=== PATIENT | female | born 1970 | race African-American/Black ===

== ENCOUNTER 2017-11-12 16:27 | Outpatient (CLI) | payer OTHER ==
[~2017-11-12] VITALS: Ht 175.3 cm; Wt 106.6 kg
--- NOTE | ~2017-11-12 | HP ---
PATIENT: FRANCISCO MARRERO MEDICAL RECORD: [id number] ACCOUNT: [id number] LOCATION:[address] : 68 ADMISSION DATE: 11/12/17 HISTORY AND PHYSICAL EXAMINATION DIAGNOSES: 1. Unstable angina. 2. Coronary artery disease. 3. Hypertension. 4. Diabetes. 5. Family history of coronary artery disease. HISTORY OF PRESENT ILLNESS: Mrs. Marrero has no previous history of ischemic heart disease. She began having chest pain yesterday, presented to the ER with continued pain. She continues to have episodes of pain this morning. Her troponin is mildly elevated. Her EKG has nonspecific ST-T abnormalities, but T-wave inversions in the lateral leads. REVIEW OF SYSTEMS: The patient reports easy bruising but reports no swollen glands. The patient reports no fever, no night sweats, no significant weight gain, no significant weight loss. No significant exercise tolerance. The patient reports no dry eyes, no irritation, no vision change. Patient reports no difficulty hearing and no ear pain. Patient reports no frequent nose bleeds or nose and sinus problems. Patient reports on arm pain on exertion. No shortness of breath while lying down. No history of heart murmur. Patient reports no cough, no wheezing or coughing up blood. Patient reports no abdominal pain, no vomiting. Normal appetite. No diarrhea and not vomiting blood. No nausea and no constipation. Patient reports no incontinence. No difficulty urinating. No hematuria. No increased frequency. Patient reports no muscle aches. No weakness, no arthralgias, no back pain. No swelling of the extremities. Patient reports no abnormal mole, no jaundice, no rashes. Reports no loss of consciousness. No weakness and no numbness. No seizures, dizziness, or headaches. The patient reports no depression, no sleep disturbance, feeling safe in a relationship and no alcohol abuse. Patient reports on fatigue. Reports no runny nose or sinus pressure. No itching, no hives, and no frequent sneezing. PHYSICAL EXAMINATION: GENERAL APPEARANCE: Well-nourished, well-developed, appears stated age. Level of distress, comfortable. PSYCHIATRIC: Mental status, alert, normal affect. Orientation, oriented to time, place and person. EYES: Lids and conjunctiva, noninjected. No discharge, no pallor. ENT: Lips, teeth, gums, normal dentition. Oropharynx, no cyanosis, no pallor. NECK: Carotid arteries, bilateral normal upstroke, no bruits, no thrills. JUGULAR VEINS: No jugular venous pressure or distention. CERVICAL LYMPH NODES: Nontender, nonenlarged. THYROID: Not enlarged. Nontender. No nodules. LUNGS: Respiratory effort, unlabored. CHEST: Normal curvature. No thoracic deformity. No chest wall tenderness. Percussion, resonant. Auscultation, clear. No wheezes, no rales, no rhonchi. CARDIOVASCULAR: Precordial exam, nondisplaced. No heaves or pericardial thrills. Rate and rhythm, regular. Heart sounds, normal S1, normal S2. No S3, no gallop, no rub. Systolic murmur, not heard. Diastolic murmur, not heard. EXTREMITIES: No cyanosis, no edema. Peripheral pulses, full and equal in all HISTORY AND PHYSICAL [id number] MARREROFRANCISCO extremities, except as noted. No bruits appreciated. ABDOMEN: Soft, nondistended. Normal aorta. No bruit. Nontender. No masses. Liver, nontender, no hepatomegaly. Spleen, nontender, no splenomegaly. MUSCULOSKELETAL: No joint tenderness. No joint swelling. No erythema. NEUROLOGICAL: Normal gait, normal strength, normal tone. SKIN: Warm and dry. OVERALL IMPRESSION: Chest pain compatible with angina in a rapidly unstable fashion with mildly elevated troponin. At this time, we will proceed with coronary angiography. Further care depends upon the findings of the angiography. TRANSINT:[id number] Voice Confirmation ID: [id number] DOCUMENT ID: [id number] GONSALO NAM MD at 0956 CC: [id number] DICTATION DATE: 11/13/17 08 TAG PRESS OPERATOR: 11/13/17 0817 ADM IN [place] [id number] [place] [address]
--- NOTE | ~2017-11-12 | DS ---
PATIENT:FRANCISCO MARRERO :68 MEDICAL RECORD: [id number] DISCHARGE SUMMARY ADMISSION DATE: 11/12/17 DISCHARGE DATE: 11/13/17 DISCHARGE DIAGNOSES: 1. Unstable angina. 2. Coronary artery disease. 3. Percutaneous transluminal coronary angioplasty stent left anterior descending this admission. 4. Diabetes. 5. Hypertension. HOSPITAL COURSE: Mrs. Marrero presents with anginal symptomatology, found to have single vessel disease to the LAD, underwent successful PTCA stent of the LAD, discharged home with the addition of aspirin and Plavix to her medical regimen. Will follow up with [facility] in 1 month. TRANSINT:[id number] Voice Confirmation ID: [id number] DOCUMENT ID: [id number] GONSALO NAM MD at 1202 CC: [id number] DICTATION DATE: 11/13/17 0958 WELL DIGGER: 11/13/17 1114 DEP CLI 11/13/[address] [address]
--- NOTE | ~2017-11-12 | OP ---
PATIENT NAME: FRANCISCO ECHOLS MEDICAL RECORD: [id number] :68 LOCATION:D.CAT ADMISSION DATE: SURGEON: GONSALO NAM MD DATE OF OPERATION: 11/13/2017 PROCEDURES: 1. PTCA stent LAD. 2. Left heart catheterization. 3. Selective coronary angiography. 4. Left ventriculogram. INDICATION: Unstable angina. PROCEDURE IN DETAIL: After informed consent was obtained and after detailed explanation of risks, benefits as well as alternative therapies, the patient elected to proceed with angiogram and angioplasty. The right radial area was prepped and draped in normal sterile fashion. Radial artery was cannulated via modified Seldinger technique with placement of 6-Malaysian sheath. All catheters exchanged through this sheath. FINDINGS: Left ventriculogram was performed in the standard 30-degree ZAZUETA view and reveals good cardiac wall motion throughout all segments. Overall ejection fraction is estimated at 55% to 60%. SELECTIVE CORONARY ANGIOGRAPHY: 1. Left main showed no significant angiographic disease. 2. Left anterior descending has 70+ percent stenosis proximally, otherwise only mild irregularities. 3. Left circumflex has moderate irregularities, but no flow-limiting stenosis. 4. Right coronary has moderate irregularities, but no flow-limiting stenosis. PTCA STENT OF THE LAD: The stent used is 4.0 x 22 mm Integrity. Result was 0% residual stenosis. OVERALL IMPRESSION: Successful percutaneous transluminal coronary angioplasty stent of the left anterior descending going from 70+ percent initial stenosis to 0% residual. TRANSINT:[id number] Voice Confirmation ID: [id number] DOCUMENT ID: [id number] GONSALO NAM MD at 1202 CC: [id number] DICTATION DATE: 11/13/17 0958 CHALK MACHINE OPERATOR: 11/13/17 1009 DEP CLI 11/13/17 [place] [address]
--- NOTE | ~2017-11-12 | HEMODYNAMI ---
PATIENT:FRANCISCO ECHOLS MEDICAL RECORD: [id number] : 68 [place] [place] [facility] [id number] ADMISSION DATE: 11/12/17 Generatedon:11/13/20179:58 Patient name: FRANCISCO ECHOLS Patient #: [id number] SSN: DO B: 1970 Date of study: 11/13/2017 Page: Of Hemodynamic Procedure Report Patient Data Patient Demographics Procedure consent was obtained First Name: FRANCISCO Gender: Female Last Name: ONESIMO : 1970 Patient #: [id number] Age: 47 year(s) Race: Black Additional ID: [id number] Contact details Address: [address] [place] [address] State: [place] City: [facility] Zip code: [address] Admission Admission Data Admission Date: 11/12/2017 Admission Time: 22:42 Room #: D.2137 Procedure Procedure Types Cath Procedure Diagnostic Procedure LHC LH w/Coronaries Sedation Charges Moderate Sedation up to 15 minutes PCI Procedure Coronary Stent Coronary Stent Initial Procedure Description Procedure Date Procedure Date: 11/13/2017 Procedure Start Time: 9:41 Procedure End Time: 9:57 Procedure Staff Name Function Amol Christina MD Performing Physician Edward Doe RT Monitor Aquiles Lazo RT Scrub Hai Mejia RN Nurse Procedure Data Cath Procedure Fluoroscopy Diagnostic fluoroscopy Total fluoroscopy Time: 3.1 time: 3.1 min min Diagnostic fluoroscopy Total fluoroscopy dose: 281 dose: 281 mGy mGy Contrast Material Contrast Material Type Amount (ml) Isovue 300 90 Entry Location Entry Primary Successful Side Size Upsize Upsize Entry Closure Peralta ccessful Closure Location (Fr) 1 (Fr) 2 (Fr) Remarks Device Remarks Radial Right 6 Fr Mechanical artery Short Compression Estimated blood loss: 10 ml Diagnostic catheters Device Type Used For End Catheter Placement DIAGNOSTIC [place] 110cm 5 Procedure Fr catheter ([id number]) Procedure Complications No complications Procedure Medications Medication Administration Route Dosage Oxygen NC 2 l/min Heparin Flush Bag added to field 2 bags (1000units/500ml NS) 0.9% NaCl I.V. 100 ml/hr Radial Cocktail added to field 1 syringe (Verapomil 2mg/Nitro 400mcg/Heparin 1500units) Fentanyl I.V. 50 mcg Versed I.V. 1 mg Fentanyl I.V. 50 mcg Versed I.V. 1 mg Radial Cocktail I.A. 1 syringe (Verapomil 2mg/Nitro 400mcg/Heparin 1500units) Heparin Bolus I.V. 4000 units Plavix P.O. 75 mg Hemodynamics Rest Heart Rate: 79 (bpm) Pressure Samples Time Site Value (mmHg) Purpose Heart Use Rate(bpm) 9:45 LV 111/7,12 Snapshot 92 9:45 AO 120/88(102) Pullback 95 9:45 LV 116/9,16 Pullback 95 9:45 AO 109/79(92) Snapshot 95 Gradients Valve Time Site 1 Site 2 Mean SEP/DFP Peak To Heart Use (mmHg) (sec/min) Peak Rate (mmHg) (bpm) Aortic 9:45 LV AO 0 7 0 95 116/9,16 120/88(102) Calculations Valve P-P Mean Valve Index Valve Source Name Gradient Area Flow (cm2) Aortic 0 0 0 0 Snapshots Pre Cath Intra NCS Post Cath Vital Signs Time Heart Resp SPO2 etCO2 NIBP (mmHg) Rhythm Pain Sedation Rate (ipm) (%) (mmHg) Status Level (bpm) 9:27:37 81 17 97 0 141/97(122) NSR 0 (11) 10(A) , No pain 9:32:02 84 14 96 32.5 146/94(111) NSR 0 (11) 10(A) , No pain 9:36:28 79 16 97 27.9 127/107(115) NSR 0 (11) 10(A) , No pain 9:40:46 93 16 92 38.6 133/93(121) NSR 0 (11) 9(A) , No pain 9:45:06 78 16 93 31 125/98(108) NSR 0 (11) 9(A) , No pain 9:49:28 93 16 92 40.1 136/80(108) NSR 0 (11) 9(A) , No pain 9:53:52 90 17 91 35.5 137/86(111) NSR 0 (11) 9(A) , No pain Medications Time Medication Route Dose Verified Delivered Reason Notes Effectiveness by by 9:31:52 Oxygen NC 2 l/min Amol Valles Per physician Sanford Mejia RN 9:32:07 Heparin Flush added 2 bags Amol Valles used for Bag to Sanford Mejia RN procedure (1000units/500ml field NS) 9:32:32 0.9% NaCl I.V. 100 Amol Valles Per physician ml/hr Sanford Mejia RN 9:32:43 Radial Cocktail added 1 Amol Valles used for (Verapomil to syringe Sanford Mejia RN procedure 2mg/Nitro field 400mcg/Heparin 1500units) 9:37:52 Fentanyl I.V. 50 mcg Amol Valles for sedation Sanford Mejia RN 9:37:59 Versed I.V. 1 mg Amol Valles for sedation Sanford Mejia RN 9:40:18 Fentanyl I.V. 50 mcg Amol Valles for sedation Sanford Mejia RN 9:43:46 Versed I.V. 1 mg Amol Valles for sedation Sanford Mejia RN 9:43:57 Radial Cocktail I.A. 1 Amol Carmichael for (Verapomil syringe Sanford Christina MD vasodilation 2mg/Nitro 400mcg/Heparin 1500units) 9:50:02 Heparin Bolus I.V. 4000 Amol Valles for units Sanford Mejia RN anticoagulation 9:54:45 Plavix P.O. 75 mg Amol Valles for Sanford Mejia RN antiplatelet therapy Procedure Log Time Note 9:01:16 Diagnostic Cath status Elective 9:01:17 Edward Doe RT(R) sent for patient. Start room use. 9:01:18 Time tracking: Regular hours 9:01:21 Plan of Care:Hemodynamics will remain stable., Cardiac rhythm will remain stable., Comfort level will be maintained., Respiratory function will remain adequate., Patient/ family verbilizes understanding of procedure., Procedure tolerated without complication., Recovers from procedure without complications.. 9:20:12 Patient received from PCU to CCL 3 Alert and oriented. Tansferred to table in Supine position. 9:20:15 Warm blankets applied, and phil hugger turned on for patient comfort. 9:20:16 Correct patient and procedure confirmed by team. 9:20:18 Signed procedure consent form obtained from patient. 9:20:19 ECG and BP/O2 sat monitors applied to patient. 9:26:20 Vital chart was started 9:26:49 Baseline sample Acquired. 9:26:52 Rhythm: sinus rhythm 9:26:54 Full Disclosure recording started 9:27:38 H&P Date Dictated: 11/12/2017 Within 30 days and on chart.. 9:27:38 Pre-procedure instructions explained to patient. 9:27:39 Pre-op teaching completed and patient verbalized understanding. 9:27:40 Family unavailable. 9:27:42 Patient NPO since Midnight. 9:27:45 Is the patient allergic to Iodine/contrast media? No. 9:27:46 Is patient on blood thinner?Yes 9:27:48 ACC The patient was administered the following blood thiners within the last 24 hours: ACCPlavix 9:27:49 Patient diabetic? Yes. 9:27:50 If diabetic: On Metformin? Yes 9:27:53 If on Metformin: Last Dose? 11/11/2017 9:27:58 HCG/Urine : completed and on chart, negative 9:28:02 Previous problem with sedation/anesthesia? No ? 9:28:03 Snore? Yes 9:28:04 Sleep apnea? No 9:28:05 Deviated septum? No 9:28:06 Opens mouth fully? Yes 9:28:06 Sticks out tongue? Yes 9:28:10 Dentures? No ? 9:28:11 Airway obstruction? No ? 9:28:14 Pre procedure: right dorsailis pedis pulse 1+ Palpable, but thready & weak; easily obliterated 9:28:15 Modified Isaías's test Ulnar < 7 seconds 9:28:17 Patient pain scale 0/10 ?. 9:28:20 IV patent on arrival in left forearm with 0.9% NaCl at KVO. 9:28:22 Lab results completed and on chart. 9:28:25 Right Radial & Right Groin area was prepped with chlora-prep and draped in sterile fashion 9:28:26 Alarms reviewed by R. N. 9:28:26 Sharps counted by scrub and verified by R.N. 9:28:33 Use device set Radial Dx or PCI 9:28:34 Tegaderm 4 x 4 (1626W) opened to sterile field. 9:28:35 ACIST Manifold (38232) opened to sterile field. 9:28:36 ACIST Hand Control (58856) opened to sterile field. 9:28:37 ACIST Syringe (21156) opened to sterile field. 9:28:37 Medline Cath Pack ([id number]) opened to sterile field. 9:28:38 Bag Decanter (2002S) opened to sterile field. 9:28:38 SHEATH 6FR Slender ([id number]) opened to sterile field. 9:28:39 DIAGNOSTIC WIRE .035 260cm J wire (407916) opened to sterile field. 9:28:39 MBrace Wrist Support ([id number]) opened to sterile field. 9:31:52 Oxygen 2 l/min NC was administered by Hai Mejia RN; Per physician; 9:32:07 Heparin Flush Bag (1000units/500ml NS) 2 bags added to field was administered by Hai Mejia RN; used for procedure; 9:32:32 0.9% NaCl 100 ml/hr I.V. was administered by Hai Mejia RN; Per physician; 9:32:43 Radial Cocktail (Verapomil 2mg/Nitro 400mcg/Heparin 1500units) 1 syringe added to field was administered by aHi Mejia RN; used for procedure; 9:36:28 --------ALL STOP TIME OUT------ 9:36:29 Final Timeout: patient, procedure, and site verified with staff and physician. All members of the team are in agreement. 9:36:31 Right Radial & Right Groin site verified by team. 9:36:33 Physical assessment completed. ASA score P 2 - A patient with mild systemic disease as per Amol Christina MD. 9:36:37 Sedation plan: IV Moderate Sedation Medication:Versed, Fentanyl 9:37:52 Fentanyl 50 mcg I.V. was administered by Hai Mejia RN; for sedation; 9:37:59 Versed 1 mg I.V. was administered by Hai Mejia RN; for sedation; 9:39:29 Zero performed for pressure channel P1 9:40:18 Fentanyl 50 mcg I.V. was administered by Hai Mejia RN; for sedation; 9:41:24 Procedure started. 9:41:30 Local anesthetic to right radial artery with Lidocaine 2% by Amol Christina MD.INITIAL ACCESS ONLY 9:43:26 A 6 Fr Short sheath was inserted into the Right Radial artery 9:43:46 Versed 1 mg I.V. was administered by Hai Mejia RN; for sedation; 9:43:57 Radial Cocktail (Verapomil 2mg/Nitro 400mcg/Heparin 1500units) 1 syringe I.A. was administered by Amol Christina MD; for vasodilation; 9:44:31 A DIAGNOSTIC [place] 110cm 5 Fr catheter ([id number]) was advanced over the wire and used for Procedure. 9:45:32 LV angiography performed. 9:45:34 LV gram done using ZAZUETA 9:45:43 EF : 60 % 9:45:45 LV hemodynamics recorded. 9:45:52 Injector settings: Ml/sec: 7, Volume: 15, 9:45:57 RCA angiography performed. 9:46:54 LCA angiography performed. 9:47:43 Use device set [facility] PCI 9:47:48 INFLATOR Merit BasixCompak (OZ6964) opened to sterile field. 9:47:53 GRAPHIX 182cm guide wire ([id number]) opened to sterile field. 9:48:34 GUIDE 6FR XBLAD 3.5 catheter ([id number]) opened to sterile field. 9:49:03 6 Fr XBLAD 3.5 guide catheter was inserted over the wire 9:49:21 Study PCI Site: [place] pLAD has 75% stenosis. 9:49:25 ACC Pre-intervention GALILEO Flow is 3. 9:49:55 Choice PT XS wire advanced. 9:50:02 Heparin Bolus 4000 units I.V. was administered by Hai Mejia RN; for anticoagulation; 9:50:20 Wire advanced across lesion. 9:51:53 Inflation number: 1 A INTEGRITY RX 4.0 x 22 stent ([id number]) was prepped and advanced across the Prox LAD, then inflated to 15 MACEY for 0:10 (min:sec). 9:52:24 TR BAND Large ([id number]) opened to sterile field. 9:52:46 ACC Post-intervention GALILEO Flow is 3. 9:52:47 Stent catheter was removed intact over wire. 9:52:48 Wire removed. 9:52:48 Guide catheter removed. 9:53:50 Procedure ended.(Physican Out) 9:54:45 Plavix 75 mg P.O. was administered by Hai Mejia RN; for antiplatelet therapy; 9:54:57 Sheath removed intact; hemostasis achieved with Mechanical Compression to the Right Radial artery. 9:55:05 Fluoroscopy time 03.10 minutes. 9:55:10 Flurop Dose total: 281 9:55:10 Fluoroscopy dose: 281 mGy 9:55:14 Contrast amount:Isovue 300 90ml. 9:55:16 Sharps counted by scrub and verified by R.N. 9:55:19 TR band inflated with 12cc of air. 9:55:20 Insertion/operative site no bleeding no hematoma. 9:55:22 Post Procedure Pulses reassessed and unchanged 9:55:24 Post-procedure physical assessment completed. ASA score P 2 - A patient with mild systemic disease as per Amol Christina MD. 9:55:26 Post procedure rhythm: unchanged. 9:55:29 Estimated blood loss: 10 ml 9:55:30 Post procedure instruction explained to patient.Patient verbalizes understanding. 9:55:31 Patient needs reinforcement of post procedure teaching. 9:55:48 Procedure type changed to Cath procedure, Diagnostic procedure, LHC, LHC w/Coronaries, Sedation Charges, Moderate Sedation up to 15 minutes, PCI procedure, Coronary Stent, Coronary Stent Initial 9:55:50 Procedure and supply charges have been captured, reviewed, submitted and are correct. 9:55:52 Procedure Complication : No complications 9:57:20 Vital chart was stopped 9:57:20 See physician's report for complete and final results. 9:57:22 Report given to Pre/Post Procedure Room. 9:57:24 Patient transfered to Pre/Post Procedure Room with Stretcher. 9:57:26 Procedure ended. 9:57:26 Full Disclosure recording stopped 9:57:33 End room use (Document Last) Intervention Summary Intervention Notes Time ActionType Lesion and Equipment Action# Pressure Duration Attributes Used 9:51:53 Inflate Prox LAD INTEGRITY RX 1 15 00:10 balloon 4.0 x 22 stent ([id number]) Device Usage Item Name Manufacture Quantity Catalog Number Hospital Part Current Mini mal Lot# / Charge Number Stock Stock Serial# Code Tegaderm 4 x 3M 1 [id number] 183967 [id number] 5 4 (1626W) ACIST Acist 1 95233 823510 525420 204356 5 Manifold Medical (87036) Systems Inc ACIST Hand Acist 1 44735 948227 697982 810104 5 Control Medical (49930) Systems Inc ACIST Acist 1 69529 070376 905129 179564 20 Syringe Medical (55752) Systems Inc Medline Cath Cardinal 1 [id number] 984331 00489 115210 5 Pack Health ([id number]) Bag Decanter Microtek 1 2001S 881033 96060 887799 5 (2001S) Medical Inc. SHEATH 6FR Terumo 1 [id number] 299568 066016 021525 40 Slender ([id number]) DIAGNOSTIC St Elpidio 1 726993 106963 927946 323808 30 WIRE .035 260cm J wire (947679) MBrace Wrist Advanced 1 140-0250-00 190612 12961 231872 5 Support Vascular (298704505) Dynamics DIAGNOSTIC Terumo 1 40-5013 057174 536221 219336 5 [place] 110cm 5 Fr catheter (993582) INFLATOR Merit 1 [id number] 952161 789582 304054 15 [facility] Medical BasixCompak (OR8105) GRAPHIX [place] 1 [id number] 776388 470196 160357 5 182cm guide Scientific wire ([id number]) GUIDE 6FR Cardinal 1 [id number] 010226 874555 496615 10 XBLAD 3.5 Health catheter (69366952) INTEGRITY RX Medtronic 1 [id number] 731011 462808 572752 5 [id number] 4.0 x 22 stent ([id number]) TR BAND Terumo 1 [id number] 504836 176325 426547 40 Large ([id number]) Signature Audit [place] Stage Time Signature Unsigned Intra-Procedure 11/13/2017 Edward Doe 9:58:01 AM RT(R) Signatures Monitor : Edward Doe RT Signature : Date : Time : [place] [address] [place] [address]
[2017-11-12 17:10] LABS: BASOPHILS 1.2 % (0-2); EOSINOPHILS 2.2 % (0-7); HEMATOCRIT 38.9 % (36.0-48.0); HEMOGLOBIN 13.2 g/dL (12-16); IMMATURE GRANULOCYTES 0.2 % (0-5); LYMPHOCYTES 42.3 % (15-50); MCH 32.8 pg (26.0-34.0); MCHC 33.9 g/dL (31.0-37.0); MCV 96.5 fL (80.0-100.0); MEAN PLATELET VOLUME 10.4 fL (7.4-10.4); MONOCYTES 6.6 % (2-11); NEUTROPHILS 47.5 % (40-80); PLATELET COUNT 313 10x3/uL (130-400); RBC 4.03 10x6/uL (4.00-5.40)
[2017-11-12 17:23] LABS: ALBUMIN 3.1 g/dL (3.4-5.0); ALKALINE PHOSPHATASE 52 U/L (46-116); ALT (SGPT) 25 U/L (10-68); BILIRUBIN - TOTAL 0.26 mg/dL (0.2-1.3); CALC OSMOLALITY 275 mosm/kg (275-300); CALCIUM 8.6 mg/dL (8.5-10.1); CHLORIDE - SERUM 102 mmol/L (98-107); GLUCOSE 193 mg/dL (74-106); POTASSIUM - SERUM 3.7 mmol/L (3.5-5.1); PROTEIN - SERUM 7.6 g/dL (6.4-8.2); SODIUM 136 mmol/L (136-145); UREA NITROGEN 9 mg/dL (7-18); eGFR NON AFRICAN AMERICAN 63 mL/min (90-120)
[2017-11-12 17:39] LABS: AMYLASE - SERUM 97 U/L (25-115); CHOL - HDL RATIO 4.3 ratio (2.3-4.1); CHOLESTEROL, TOTAL 173 mg/dL (0-200); CKMB 0.9 U/L (0.0-3.6); CREATINE KINASE 47 UL (21-215); HDL CHOLESTEROL 40 mg/dL (32-96); LDL CHOLESTEROL 92 mg/dL (0-100); LDL-HDL RATIO 2.3 ratio (1.5-3.5); LIPASE 128 U/L (73-393); TRIGLYCERIDE 208 mg/dL (30-200)
[2017-11-12 17:40] LABS: TROPONIN-I 0.144 ng/mL (0.000-0.060)
[2017-11-12 18:06] LABS: HCG URINE NEGATIVE (NEGATIVE)
[2017-11-12 18:07] LABS: APPEARANCE CLEAR (CLEAR); BILIRUBIN NEGATIVE (NEGATIVE); COLOR YELLOW (YELLOW); GLUCOSE 250 mg/dL (NEGATIVE); KETONE NEGATIVE (NEGATIVE); NITRITE NEGATIVE (NEGATIVE); PROTEIN NEGATIVE (NEGATIVE); UROBILINOGEN NORMAL (NORMAL)
[2017-11-12 18:09] LABS: BACTERIA MODERATE /hpf (NONE SEEN); MUCUS <1+ /lpf (NONE SEEN); RED CELLS - URINE OCC /hpf (0-5)
[2017-11-12 18:12] LABS: UDS - AMPHET NEGATIVE QUAL (NEGATIVE); UDS - BARB NEGATIVE QUAL (NEGATIVE); UDS - BENZO NEGATIVE QUAL (NEGATIVE); UDS - COCAINE NEGATIVE QUAL (NEGATIVE); UDS - OPIATE NEGATIVE QUAL (NEGATIVE); UDS - PCP NEGATIVE QUAL (NEGATIVE); UDS - THC POSITIVE QUAL (NEGATIVE)
[2017-11-12 18:13] LABS: PROTIME 11.9 SECONDS (11.6-15.0)
[2017-11-12 18:14] LABS: INR 0.91 (0.85-1.17)
[2017-11-12 21:08] LABS: TROPONIN-I 0.39 ng/mL (0.000-0.060)
[2017-11-12 23:50] LABS: CKMB 2.5 U/L (0.0-3.6); CREATINE KINASE 66 UL (21-215)
[2017-11-12 23:56] LABS: TROPONIN-I 0.603 ng/mL (0.000-0.060)
[2017-11-13] VITALS: BP 112/79
[2017-11-13 00:36] VITALS: Ht 175.3 cm; Wt 106.6 kg
[2017-11-13 04:00] VITALS: BP 136/94
[2017-11-13 05:56] LABS: EOSINOPHILS 2.7 % (0-7); HEMOGLOBIN 12.8 g/dL (12-16); IMMATURE GRANULOCYTES 0.3 % (0-5); LYMPHOCYTES 44.6 % (15-50); MCH 32.3 pg (26.0-34.0); MCHC 33.7 g/dL (31.0-37.0); MEAN PLATELET VOLUME 10.8 fL (7.4-10.4); MONOCYTES 6.3 % (2-11); NEUTROPHILS 45.1 % (40-80); PLATELET COUNT 349 10x3/uL (130-400); RBC 3.96 10x6/uL (4.00-5.40); RDW 12.8 % (11.5-14.5); WBC 7.7 10x3/uL (4.8-10.8)
[2017-11-13 06:24] LABS: ALBUMIN 2.9 g/dL (3.4-5.0); ALKALINE PHOSPHATASE 50 U/L (46-116); ALT (SGPT) 27 U/L (10-68); CALCIUM 8.1 mg/dL (8.5-10.1); CARBON DIOXIDE 23.8 mmol/L (21.0-32.0); CHLORIDE - SERUM 104 mmol/L (98-107); CKMB 2.1 U/L (0.0-3.6); CREATINE KINASE 57 UL (21-215); CREATININE - SERUM 0.9 mg/dL (0.6-1.3); POTASSIUM - SERUM 3.8 mmol/L (3.5-5.1); SODIUM 137 mmol/L (136-145); UREA NITROGEN 10 mg/dL (7-18); eGFR NON AFRICAN AMERICAN 71 mL/min (90-120)
[2017-11-13 06:41] LABS: CALC OSMOLALITY 274 mosm/kg (275-300); GLUCOSE 126 mg/dL (74-106); TROPONIN-I 0.817 ng/mL (0.000-0.060)
[2017-11-13 07:54] VITALS: BP 132/93
[2017-11-13 09:23] LABS: HCG SERUM NEGATIVE (NEGATIVE)
[2017-11-13] MEDS ORDERED: PLAVIX75 MG PO (10:40)
[2017-11-13] MEDS ORDERED: PRINIVIL20 MG PO (12:10)
[2017-11-13] MEDS ORDERED: GLUCOPHAGE1000 MG PO (12:11)
[2017-11-13] MEDS ORDERED: ZOCOR5 MG PO (12:11)
[2017-11-13] MEDS ORDERED: NORCO 7.5/325 T1 TA1 PO (12:12)
[2017-11-13] MEDS ORDERED: GLIMEPIRIDE4 MG PO (12:12)
== END 2017-11-13 14:00 | disposition home or self-care (01) ==
LOC: OBSVTIME → D.CATH 16:27 → D.ER 16:27 → D.M2 22:42 → OBSVTIME 22:42 → D.M2 22:42 → D.CLR 11-13 10:02 → D.M2 11-13 10:02 → EDSTATUS 11-13 12:00 → D.CLR 11-13 14:00 → D.CATH 11-13 14:00
PROVIDERS: Emergency Medicine; Family Medicine; Internal Medicine Interventional Cardiology; Nurse Practitioner Family
DX: I25.110 Atherosclerotic heart disease of native coronary artery with unstable angina pectoris (principal); I10 Essential (primary) hypertension; E78.5 Hyperlipidemia, unspecified; Z01.812 Encounter for preprocedural laboratory examination